=== PATIENT | male | born 1985 | race Caucasian/White ===

== ENCOUNTER 2017-08-27 14:57 | Inpatient (IN) | payer OTHER ==
[2017-08-27 15:54] LABS: Basophils % (Auto) 0.7 % (0.0-1.8); Eosinophils % (Auto) 5.1 % (0.0-4.3); Hematocrit 46.5 % (35.5-45.6); Hemoglobin 15.7 gm/dl (11.8-15.2); Mean Corpuscular HGB Conc 34 % (32-34); Mean Corpuscular Hemoglobin 31 pg (28-32); Mean Corpuscular Volume 92 fl (84-94); Platelet Count 290 K/mm3 (140-440); Red Blood Count 5.04 M/mm3 (3.65-5.03); Red Cell Distribution Width 13.4 % (13.2-15.2); White Blood Count 6.6 K/mm3 (4.5-11.0)
[2017-08-27 16:13] LABS: Alanine Aminotransferase 13 units/L (7-56); Albumin 4.4 g/dL (3.9-5); Albumin/Globulin Ratio 1.5 %; Alkaline Phosphatase 82 units/L (35-129); Anion Gap 16 mmol/L; BUN/Creatinine Ratio 10; Blood Urea Nitrogen 10 mg/dL (9-20); Calcium 8.9 mg/dL (8.4-10.2); Carbon Dioxide 28 mmol/L (22-30); Chloride 97.9 mmol/L (98-107); Glucose 103 mg/dL (75-100); Potassium 4.2 mmol/L (3.6-5.0); Sodium 138 mmol/L (137-145); Total Protein 7.3 g/dL (6.3-8.2)
[2017-08-27] MEDS ORDERED: MORPHINE IV ONE (18:23)
[2017-08-27] MEDS ORDERED: LOVENOX SUB-Q ONE (18:24)
[2017-08-27] MEDS ORDERED: MORPHINE ONE (18:48)
--- NOTE | 2017-08-27 19:12 | Emergency Department Report ---
ED General Adult HPI - General Chief complaint: Extremity Injury, Lower Stated complaint: RIGHT LEG SWOLLEN Time Seen by Provider: 08/27/17 18:23 Source: patient Mode of arrival: Ambulatory Limitations: No Limitations - History of Present Illness Initial comments: Patient is a 32-year-old male no significant past medical history who presents with right leg pain and swelling. Patient states that right leg pain has been going on for the last couple days however it's gotten a lot worse today. Sensation states that pain is severe and nothing makes it better or worse patient states that the pain is achy it's deep it radiates down his ankle. Patient denies having nausea or vomiting. He denies having any shortness of breath. Severity scale (0 -10): 9 - Related Data Home Medications Medication Instructions Recorded Confirmed Last Taken No Known Home Medications [No 08/27/17 08/27/17 Unknown Reported Home Medications] Allergies Allergy/AdvReac Type Severity Reaction Status Date / Time No Known Allergies Allergy Unverified 08/27/17 15:02 ED Review of Systems ROS: Stated complaint: RIGHT LEG SWOLLEN Other details as noted in HPI Constitutional: denies: chills, fever Eyes: denies: eye pain, eye discharge, vision change ENT: denies: ear pain, throat pain Respiratory: denies: cough, shortness of breath, wheezing Cardiovascular: denies: chest pain, palpitations Endocrine: no symptoms reported Gastrointestinal: denies: abdominal pain, nausea, diarrhea Genitourinary: denies: urgency, dysuria Musculoskeletal: as per HPI (right calf swelling ). denies: back pain, joint swelling, arthralgia Skin: denies: rash, lesions Neurological: denies: headache, weakness, paresthesias Psychiatric: denies: anxiety, depression Hematological/Lymphatic: denies: easy bleeding, easy bruising ED Past Medical Hx - Past Medical History Previous Medical History?: No - Surgical History Past Surgical History?: No - Social History Smoking Status: Never Smoker Substance Use Type: Alcohol - Medications Home Medications: Home Medications Medication Instructions Recorded Confirmed Last Taken Type No Known Home Medications [No 08/27/17 08/27/17 Unknown History Reported Home Medications] ED Physical Exam - General Limitations: No Limitations General appearance: alert, in no apparent distress - Head Head exam: Present: atraumatic, normocephalic - Eye Eye exam: Present: normal appearance - ENT ENT exam: Present: mucous membranes moist - Neck Neck exam: Present: normal inspection - Respiratory Respiratory exam: Present: normal lung sounds bilaterally. Absent: respiratory distress - Cardiovascular Cardiovascular Exam: Present: regular rate, normal rhythm. Absent: systolic murmur, diastolic murmur, rubs, gallop - GI/Abdominal GI/Abdominal exam: Present: soft, normal bowel sounds - Rectal Rectal exam: Present: deferred - Extremities Exam Extremities exam: Present: normal inspection - Back Exam Back exam: Present: normal inspection - Neurological Exam Neurological exam: Present: alert, oriented X3 - Psychiatric Psychiatric exam: Present: normal affect, normal mood - Skin Skin exam: Present: warm, dry, intact, normal color. Absent: rash ED Course Vital Signs 08/27/17 08/27/17 08/27/17 15:00 18:25 18:55 Temperature 98.0 F 98.6 F Pulse Rate 85 85 Respiratory 18 18 18 Rate Blood Pressure 114/70 Blood Pressure 101/66 [Right] O2 Sat by Pulse 99 99 Oximetry 08/27/17 23:15 Temperature Pulse Rate Respiratory 18 Rate Blood Pressure Blood Pressure [Right] O2 Sat by Pulse 99 Oximetry ED Medical Decision Making - Lab Data Result diagrams: 08/27/17 15:17 08/27/17 15:17 Labs 08/27/17 08/27/17 15:17 15:17 WBC 6.6 RBC 5.04 H Hgb 15.7 H Hct 46.5 H MCV 92 MCH 31 MCHC 34 RDW 13.4 Plt Count 290 Lymph % (Auto) 24.7 [place] % (Auto) 7.6 H Eos % (Auto) 5.1 H Baso % (Auto) 0.7 Lymph # 1.6 [place] # 0.5 Eos # 0.3 Baso # 0.0 Seg Neutrophils % 61.9 Seg Neutrophils # 4.1 Sodium 138 Potassium 4.2 Chloride 97.9 L Carbon Dioxide 28 Anion Gap 16 BUN 10 Creatinine 1.0 Estimated GFR > 60 BUN/Creatinine Ratio 10 Glucose 103 H Calcium 8.9 Total Bilirubin 0.80 AST 16 ALT 13 Alkaline Phosphatase 82 Total Protein 7.3 Albumin 4.4 Albumin/Globulin Ratio 1.5 - Radiology Data Radiology results: report reviewed, image reviewed Ultrasound of right leg is positive for DVT - Medical Decision Making Chief medical diagnosis: DVT Differential diagnosis: SVT, muscle hematoma, neuropathy A CBC, CMP, PTT, INR I will give patient IV morphine and I will give patient subcutaneous Lovenox. Due to patient having DVT and not having insurance he will need to be admitted to the hospital to be bridged to warfarin. Critical care attestation.: If time is entered above; I have spent that time in minutes in the direct care of this critically ill patient, excluding procedure time. ED Disposition Clinical Impression: DVT (deep venous thrombosis) Qualifiers: DVT location: lower extremity Affected thrombotic vein of extremity: unspecified vein of extremity Chronicity: acute Laterality: right Qualified Code (s): I82.401 - Acute embolism and thrombosis of unspecified deep veins of right lower extremity Lower extremity pain Qualifiers: Laterality: right Qualified Code(s): M79.604 - Pain in right leg Disposition: TO HOME OR SELFCARE Is pt being admited?: Yes Does the pt Need Aspirin: No Condition: Stable
--- NOTE | 2017-08-27 21:51 | History and Physical Report ---
History of Present Illness Date of examination: 08/27/17 Chief complaint: Pain on the right leg of 2 weeks History of present illness: 32-year-old male with no significant past medical history presented to emergency department for the complaints of right leg swelling and pain for the last 2 weeks. Patient said pain is sharp, involves the right leg below the knee and aggravated with movement 10 out of 10 in intensity with no radiation, erythema. Patient denied fever or chills, difficulty of breathing or trauma to his leg. 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 REVIEW OF SYSTEMS: GENERAL: no weight change, no fatigue, no fever HEAD: no head ache EYES: no blurry vision, no acute visual loss EARS: no hearing loss, no discharge, no earache NOSE: no stuffiness, no sneezing, no discharge MOUTH, THROAT AND NECK: no bleeding gums, no sore throat, no swollen neck CARDIAC: no palpitations, no dyspnea on exertion, no orthopnea, no PND, no edema , no chest pain RESPIRATORY: no shortness of breath, no wheeze, no cough, no sputum, no hemoptysis, no asthma GI: no decreased appetite, no nausea, no vomiting, no dysphagia, no diarrhea, no constipation, no abdominal pain URINARY: no change in frequency, no urgency, no polyuria, no hematuria, no incontinence MUSCULOSKELETAL: no muscle weakness, + pain right leg, no joint stiffness NEUROLOGIC: no loss of sensation/numbness, no tingling, no tremors, no weakness/ paralysis HEMATOLOGIC: no anemia, no easy bruising SKIN: no rashes ENDOCRINE: no heat/cold intolerance, no polyuria, no polydipsia, no thyroid problems, no diabetes PSYCHIATRIC: no anxiety, no depression, no suicidal ideations Past History Past Medical History: No medical history Past Surgical History: No surgical history Social history: smoking (one pack of cigarettes per week), alcohol abuse ( sixpacks per day), full code. denies: prescription drug abuse, IV drug use Family history: no significant family history Medications and Allergies Allergies Allergy/AdvReac Type Severity Reaction Status Date / Time No Known Allergies Allergy Unverified 08/27/17 15:02 Home Medications Medication Instructions Recorded Confirmed Last Taken Type No Known Home Medications [No 08/27/17 08/27/17 Unknown History Reported Home Medications] Exam - Physical Exam Narrative exam: Not in cardiopulmonary distress. The patient appeared well nourished and normally developed. Vital signs as documented. Head exam is unremarkable. No scleral icterus . Neck is without jugular venous distension, thyromegaly, or carotid bruits. Lungs are clear to auscultation. Cardiac exam reveals regular rate and Rhythm. First and second heart sounds normal. No murmurs, rubs or gallops. Abdominal exam reveals normal bowel sounds, no masses, no organomegaly and no aortic enlargement. Extremities are tender ness on the RLE below the knee, erythema. 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 No focal weakness. - Constitutional Vitals: Temp Pulse Resp BP Pulse Ox 98.6 F 85 18 101/66 99 08/27/17 18:25 08/27/17 18:25 08/27/17 18:55 08/27/17 18:25 08/27/17 18:25 Results - Labs CBC & Chem 7: 08/27/17 15:17 08/27/17 15:17 Labs: Laboratory Last Values WBC 6.6 K/mm3 (4.5-11.0) 08/27/17 15:17 RBC 5.04 M/mm3 (3.65-5.03) H 08/27/17 15:17 Hgb 15.7 gm/dl (11.8-15.2) H 08/27/17 15:17 Hct 46.5 % (35.5-45.6) H 08/27/17 15:17 MCV 92 fl (84-94) 08/27/17 15:17 MCH 31 pg (28-32) 08/27/17 15:17 MCHC 34 % (32-34) 08/27/17 15:17 RDW 13.4 % (13.2-15.2) 08/27/17 15:17 Plt Count 290 K/mm3 (140-440) 08/27/17 15:17 Lymph % (Auto) 24.7 % (13.4-35.0) 08/27/17 15:17 [place] % (Auto) 7.6 % (0.0-7.3) H 08/27/17 15:17 Eos % (Auto) 5.1 % (0.0-4.3) H 08/27/17 15:17 Baso % (Auto) 0.7 % (0.0-1.8) 08/27/17 15:17 Lymph # 1.6 K/mm3 (1.2-5.4) 08/27/17 15:17 [place] # 0.5 K/mm3 (0.0-0.8) 08/27/17 15:17 Eos # 0.3 K/mm3 (0.0-0.4) 08/27/17 15:17 Baso # 0.0 K/mm3 (0.0-0.1) 08/27/17 15:17 Seg Neutrophils % 61.9 % (40.0-70.0) 08/27/17 15:17 Seg Neutrophils # 4.1 K/mm3 (1.8-7.7) 08/27/17 15:17 Sodium 138 mmol/L (137-145) 08/27/17 15:17 Potassium 4.2 mmol/L (3.6-5.0) 08/27/17 15:17 Chloride 97.9 mmol/L (98-107) L 08/27/17 15:17 Carbon Dioxide 28 mmol/L (22-30) 08/27/17 15:17 Anion Gap 16 mmol/L 08/27/17 15:17 BUN 10 mg/dL (9-20) 08/27/17 15:17 Creatinine 1.0 mg/dL (0.8-1.5) 08/27/17 15:17 Estimated GFR > 60 ml/min 08/27/17 15:17 BUN/Creatinine Ratio 10 % 08/27/17 15:17 Glucose 103 mg/dL (75-100) H 08/27/17 15:17 Calcium 8.9 mg/dL (8.4-10.2) 08/27/17 15:17 Total Bilirubin 0.80 mg/dL (0.1-1.2) 08/27/17 15:17 AST 16 units/L (5-40) 08/27/17 15:17 ALT 13 units/L (7-56) 08/27/17 15:17 Alkaline Phosphatase 82 units/L (35-129) 08/27/17 15:17 Total Protein 7.3 g/dL (6.3-8.2) 08/27/17 15:17 Albumin 4.4 g/dL (3.9-5) 08/27/17 15:17 Albumin/Globulin Ratio 1.5 % 08/27/17 15:17 Assessment and Plan Assessment and plan: Right lower extremity DVT - EVIDENCE OF ACUTE THROMBUS NOTED IN THE RT.CFV EXTENDING TO THE RT.PX GSV - Patient started with on Lovenox and Coumadin - Pain control - Patient didn't have insurance Disposition - Admit to medical floor. Advance Directives: Yes VTE prophylaxis?: Chemical Plan of care discussed with patient/family: Yes
[2017-08-27] MEDS ORDERED: MOTRIN PO PRN (23:24)
[2017-08-28 07:50] LABS: Basophils % (Auto) 0.8 % (0.0-1.8); Eosinophils % (Auto) 6.7 % (0.0-4.3); Hematocrit 45.1 % (35.5-45.6); Hemoglobin 15.2 gm/dl (11.8-15.2); Mean Corpuscular HGB Conc 34 % (32-34); Mean Corpuscular Hemoglobin 31 pg (28-32); Mean Corpuscular Volume 92 fl (84-94); Platelet Count 276 K/mm3 (140-440); Red Blood Count 4.88 M/mm3 (3.65-5.03); Red Cell Distribution Width 13.2 % (13.2-15.2); White Blood Count 6.3 K/mm3 (4.5-11.0)
[2017-08-28 08:38] LABS: INR 0.95 (0.87-1.13)
[2017-08-28 08:55] LABS: Anion Gap 14 mmol/L; BUN/Creatinine Ratio 10; Blood Urea Nitrogen 9 mg/dL (9-20); Calcium 8.6 mg/dL (8.4-10.2); Carbon Dioxide 27 mmol/L (22-30); Chloride 103.7 mmol/L (98-107); Glucose 117 mg/dL (75-100); Potassium 3.8 mmol/L (3.6-5.0); Sodium 141 mmol/L (137-145)
[2017-08-28] MEDS: LOVENOX SUB-Q SCH ×2 (09:49→21:14)
--- NOTE | 2017-08-28 12:31 | Progress Note ---
Assessment and Plan Assessment and plan: Right lower extremity DVT - EVIDENCE OF ACUTE THROMBUS NOTED IN THE RT.CFV EXTENDING TO THE RT.PX GSV - Continue with on Lovenox and Coumadin - Pain control - Patient does not have insurance -. Case management consultation for discharge needs Disposition - Admit to medical floor. History Interval history: No new issues overnight. Hospitalist Physical - Constitutional Vitals: Temp Pulse Resp BP Pulse Ox 98.5 F 75 20 95/66 97 08/28/17 07:35 08/28/17 07:35 08/28/17 07:35 08/28/17 07:35 08/28/17 07:35 General appearance: Present: no acute distress, well-nourished - EENT Eyes: Present: PERRL, EOM intact ENT: hearing intact, clear oral mucosa, dentition normal - Neck Neck: Present: supple, normal ROM - Respiratory Respiratory effort: normal Respiratory: bilateral: CTA - Cardiovascular Rhythm: regular Heart Sounds: Present: S1 & S2. Absent: gallop, rub - Extremities Extremities: no ischemia, No edema, Full ROM - Abdominal General gastrointestinal: soft, non-tender, non-distended, normal bowel sounds - Integumentary Integumentary: Present: clear, warm, dry - Neurologic Neurologic: CNII-XII intact, moves all extremities Results - Labs CBC & Chem 7: 08/28/17 07:06 08/28/17 07:06 Labs: Laboratory Last Values WBC 6.3 K/mm3 (4.5-11.0) 08/28/17 07:06 RBC 4.88 M/mm3 (3.65-5.03) 08/28/17 07:06 Hgb 15.2 gm/dl (11.8-15.2) 08/28/17 07:06 Hct 45.1 % (35.5-45.6) 08/28/17 07:06 MCV 92 fl (84-94) 08/28/17 07:06 MCH 31 pg (28-32) 08/28/17 07:06 MCHC 34 % (32-34) 08/28/17 07:06 RDW 13.2 % (13.2-15.2) 08/28/17 07:06 Plt Count 276 K/mm3 (140-440) 08/28/17 07:06 Lymph % (Auto) 33.5 % (13.4-35.0) 08/28/17 07:06 [place] % (Auto) 8.3 % (0.0-7.3) H 08/28/17 07:06 Eos % (Auto) 6.7 % (0.0-4.3) H 08/28/17 07:06 Baso % (Auto) 0.8 % (0.0-1.8) 08/28/17 07:06 Lymph # 2.1 K/mm3 (1.2-5.4) 08/28/17 07:06 [place] # 0.5 K/mm3 (0.0-0.8) 08/28/17 07:06 Eos # 0.4 K/mm3 (0.0-0.4) 08/28/17 07:06 Baso # 0.0 K/mm3 (0.0-0.1) 08/28/17 07:06 Seg Neutrophils % 50.7 % (40.0-70.0) 08/28/17 07:06 Seg Neutrophils # 3.2 K/mm3 (1.8-7.7) 08/28/17 07:06 PT 13.2 Sec. (12.2-14.9) 08/28/17 07:06 INR 0.95 (0.87-1.13) 08/28/17 07:06 Sodium 138 mmol/L (137-145) 08/27/17 15:17 Potassium 4.2 mmol/L (3.6-5.0) 08/27/17 15:17 Chloride 97.9 mmol/L (98-107) L 08/27/17 15:17 Carbon Dioxide 27 mmol/L (22-30) 08/28/17 07:06 Anion Gap 16 mmol/L 08/27/17 15:17 BUN 9 mg/dL (9-20) 08/28/17 07:06 Creatinine 0.9 mg/dL (0.8-1.5) 08/28/17 07:06 Estimated GFR > 60 ml/min 08/28/17 07:06 BUN/Creatinine Ratio 10 % 08/28/17 07:06 Glucose 117 mg/dL (75-100) H 08/28/17 07:06 Calcium 8.6 mg/dL (8.4-10.2) 08/28/17 07:06 Total Bilirubin 0.80 mg/dL (0.1-1.2) 08/27/17 15:17 AST 16 units/L (5-40) 08/27/17 15:17 ALT 13 units/L (7-56) 08/27/17 15:17 Alkaline Phosphatase 82 units/L (35-129) 08/27/17 15:17 Total Protein 7.3 g/dL (6.3-8.2) 08/27/17 15:17 Albumin 4.4 g/dL (3.9-5) 08/27/17 15:17 Albumin/Globulin Ratio 1.5 % 08/27/17 15:17
[2017-08-28] MEDS: COUMADIN PO SCH (17:40)
[2017-08-29 06:34] LABS: Basophils % (Auto) 0.8 % (0.0-1.8); Eosinophils % (Auto) 7.5 % (0.0-4.3); Hematocrit 44.8 % (35.5-45.6); Hemoglobin 15.6 gm/dl (11.8-15.2); Mean Corpuscular HGB Conc 35 % (32-34); Mean Corpuscular Hemoglobin 32 pg (28-32); Mean Corpuscular Volume 91 fl (84-94); Platelet Count 254 K/mm3 (140-440); Red Blood Count 4.92 M/mm3 (3.65-5.03); Red Cell Distribution Width 13.4 % (13.2-15.2); White Blood Count 5.8 K/mm3 (4.5-11.0)
[2017-08-29 06:41] LABS: INR 0.97 (0.87-1.13)
[2017-08-29 06:52] LABS: Anion Gap 17 mmol/L; BUN/Creatinine Ratio 13; Blood Urea Nitrogen 12 mg/dL (9-20); Calcium 8.7 mg/dL (8.4-10.2); Carbon Dioxide 26 mmol/L (22-30); Chloride 100.3 mmol/L (98-107); Glucose 95 mg/dL (75-100); Potassium 3.9 mmol/L (3.6-5.0); Sodium 139 mmol/L (137-145)
--- NOTE | 2017-08-29 10:53 | Progress Note ---
Assessment and Plan Assessment and plan: Right lower extremity DVT - EVIDENCE OF ACUTE THROMBUS NOTED IN THE RT.CFV EXTENDING TO THE RT.PX GSV - Continue with on Lovenox and Coumadin - Pain control - Patient does not have insurance - Case management consultation for discharge needs Disposition - Continue inpatient management until INR therapeutic 2-3 History Interval history: No new issues overnight. Hospitalist Physical - Constitutional Vitals: Temp Pulse Resp BP Pulse Ox 99.6 F 86 20 107/69 100 08/29/17 07:51 08/29/17 07:51 08/29/17 07:51 08/29/17 07:51 08/29/17 07:51 General appearance: Present: no acute distress, well-nourished - EENT Eyes: Present: PERRL, EOM intact ENT: hearing intact, clear oral mucosa, dentition normal - Neck Neck: Present: supple, normal ROM - Respiratory Respiratory effort: normal Respiratory: bilateral: CTA - Cardiovascular Rhythm: regular Heart Sounds: Present: S1 & S2. Absent: gallop, rub - Extremities Extremities: no ischemia, No edema, Full ROM - Abdominal General gastrointestinal: soft, non-tender, non-distended, normal bowel sounds - Integumentary Integumentary: Present: clear, warm, dry - Neurologic Neurologic: CNII-XII intact, moves all extremities Results - Labs CBC & Chem 7: 08/29/17 05:45 08/29/17 05:45 Labs: Laboratory Last Values WBC 5.8 K/mm3 (4.5-11.0) 08/29/17 05:45 RBC 4.92 M/mm3 (3.65-5.03) 08/29/17 05:45 Hgb 15.6 gm/dl (11.8-15.2) H 08/29/17 05:45 Hct 44.8 % (35.5-45.6) 08/29/17 05:45 MCV 91 fl (84-94) 08/29/17 05:45 MCH 32 pg (28-32) 08/29/17 05:45 MCHC 35 % (32-34) H 08/29/17 05:45 RDW 13.4 % (13.2-15.2) 08/29/17 05:45 Plt Count 254 K/mm3 (140-440) 08/29/17 05:45 Lymph % (Auto) 34.4 % (13.4-35.0) 08/29/17 05:45 [place] % (Auto) 8.5 % (0.0-7.3) H 08/29/17 05:45 Eos % (Auto) 7.5 % (0.0-4.3) H 08/29/17 05:45 Baso % (Auto) 0.8 % (0.0-1.8) 08/29/17 05:45 Lymph # 2.0 K/mm3 (1.2-5.4) 08/29/17 05:45 [place] # 0.5 K/mm3 (0.0-0.8) 08/29/17 05:45 Eos # 0.4 K/mm3 (0.0-0.4) 08/29/17 05:45 Baso # 0.0 K/mm3 (0.0-0.1) 08/29/17 05:45 Seg Neutrophils % 48.8 % (40.0-70.0) 08/29/17 05:45 Seg Neutrophils # 2.8 K/mm3 (1.8-7.7) 08/29/17 05:45 PT 13.4 Sec. (12.2-14.9) 08/29/17 05:45 INR 0.97 (0.87-1.13) 08/29/17 05:45 Sodium 139 mmol/L (137-145) 08/29/17 05:45 Potassium 3.9 mmol/L (3.6-5.0) 08/29/17 05:45 Chloride 100.3 mmol/L (98-107) 08/29/17 05:45 Carbon Dioxide 26 mmol/L (22-30) 08/29/17 05:45 Anion Gap 17 mmol/L 08/29/17 05:45 BUN 12 mg/dL (9-20) 08/29/17 05:45 Creatinine 0.9 mg/dL (0.8-1.5) 08/29/17 05:45 Estimated GFR > 60 ml/min 08/29/17 05:45 BUN/Creatinine Ratio 13 % 08/29/17 05:45 Glucose 95 mg/dL (75-100) 08/29/17 05:45 Calcium 8.7 mg/dL (8.4-10.2) 08/29/17 05:45 Total Bilirubin 0.80 mg/dL (0.1-1.2) 08/27/17 15:17 AST 16 units/L (5-40) 08/27/17 15:17 ALT 13 units/L (7-56) 08/27/17 15:17 Alkaline Phosphatase 82 units/L (35-129) 08/27/17 15:17 Total Protein 7.3 g/dL (6.3-8.2) 08/27/17 15:17 Albumin 4.4 g/dL (3.9-5) 08/27/17 15:17 Albumin/Globulin Ratio 1.5 % 08/27/17 15:17
[2017-08-29] MEDS: LOVENOX SUB-Q SCH ×2 (11:00→22:30)
[2017-08-29] MEDS: COUMADIN PO SCH (17:27)
--- NOTE | 2017-08-30 09:21 | Progress Note ---
Assessment and Plan Assessment and plan: Right lower extremity DVT - EVIDENCE OF ACUTE THROMBUS NOTED IN THE RT.CFV EXTENDING TO THE RT.PX GSV - Continue with on Lovenox and Coumadin - Pain control - Patient does not have insurance - Case management consultation for discharge needs Disposition - Continue inpatient management until INR therapeutic 2-3 History Interval history: No new issues overnight. Hospitalist Physical - Constitutional Vitals: Temp Pulse Resp BP Pulse Ox 97.7 F 73 16 100/50 98 08/30/17 08:00 08/30/17 08:00 08/29/17 23:34 08/30/17 08:00 08/30/17 08:00 General appearance: Present: no acute distress, well-nourished - EENT Eyes: Present: PERRL, EOM intact ENT: hearing intact, clear oral mucosa, dentition normal - Neck Neck: Present: supple, normal ROM - Respiratory Respiratory effort: normal Respiratory: bilateral: CTA - Cardiovascular Rhythm: regular Heart Sounds: Present: S1 & S2. Absent: gallop, rub - Extremities Extremities: no ischemia, No edema, Full ROM - Abdominal General gastrointestinal: soft, non-tender, non-distended, normal bowel sounds - Integumentary Integumentary: Present: clear, warm, dry - Neurologic Neurologic: CNII-XII intact, moves all extremities Results - Labs CBC & Chem 7: 08/29/17 05:45 08/29/17 05:45 Labs: Laboratory Last Values WBC 5.8 K/mm3 (4.5-11.0) 08/29/17 05:45 RBC 4.92 M/mm3 (3.65-5.03) 08/29/17 05:45 Hgb 15.6 gm/dl (11.8-15.2) H 08/29/17 05:45 Hct 44.8 % (35.5-45.6) 08/29/17 05:45 MCV 91 fl (84-94) 08/29/17 05:45 MCH 32 pg (28-32) 08/29/17 05:45 MCHC 35 % (32-34) H 08/29/17 05:45 RDW 13.4 % (13.2-15.2) 08/29/17 05:45 Plt Count 254 K/mm3 (140-440) 08/29/17 05:45 Lymph % (Auto) 34.4 % (13.4-35.0) 08/29/17 05:45 [place] % (Auto) 8.5 % (0.0-7.3) H 08/29/17 05:45 Eos % (Auto) 7.5 % (0.0-4.3) H 08/29/17 05:45 Baso % (Auto) 0.8 % (0.0-1.8) 08/29/17 05:45 Lymph # 2.0 K/mm3 (1.2-5.4) 08/29/17 05:45 [place] # 0.5 K/mm3 (0.0-0.8) 08/29/17 05:45 Eos # 0.4 K/mm3 (0.0-0.4) 08/29/17 05:45 Baso # 0.0 K/mm3 (0.0-0.1) 08/29/17 05:45 Seg Neutrophils % 48.8 % (40.0-70.0) 08/29/17 05:45 Seg Neutrophils # 2.8 K/mm3 (1.8-7.7) 08/29/17 05:45 PT 13.4 Sec. (12.2-14.9) 08/29/17 05:45 INR 0.97 (0.87-1.13) 08/29/17 05:45 Sodium 139 mmol/L (137-145) 08/29/17 05:45 Potassium 3.9 mmol/L (3.6-5.0) 08/29/17 05:45 Chloride 100.3 mmol/L (98-107) 08/29/17 05:45 Carbon Dioxide 26 mmol/L (22-30) 08/29/17 05:45 Anion Gap 17 mmol/L 08/29/17 05:45 BUN 12 mg/dL (9-20) 08/29/17 05:45 Creatinine 0.9 mg/dL (0.8-1.5) 08/29/17 05:45 Estimated GFR > 60 ml/min 08/29/17 05:45 BUN/Creatinine Ratio 13 % 08/29/17 05:45 Glucose 95 mg/dL (75-100) 08/29/17 05:45 Calcium 8.7 mg/dL (8.4-10.2) 08/29/17 05:45 Total Bilirubin 0.80 mg/dL (0.1-1.2) 08/27/17 15:17 AST 16 units/L (5-40) 08/27/17 15:17 ALT 13 units/L (7-56) 08/27/17 15:17 Alkaline Phosphatase 82 units/L (35-129) 08/27/17 15:17 Total Protein 7.3 g/dL (6.3-8.2) 08/27/17 15:17 Albumin 4.4 g/dL (3.9-5) 08/27/17 15:17 Albumin/Globulin Ratio 1.5 % 08/27/17 15:17
[2017-08-30] MEDS: LOVENOX SUB-Q SCH ×2 (11:00→22:00)
[2017-08-30 11:26] LABS: INR 1.07 (0.87-1.13)
[2017-08-30] MEDS: COUMADIN PO SCH (17:45)
[2017-08-31 09:19] LABS: Basophils % (Auto) 0.6 % (0.0-1.8); Eosinophils % (Auto) 5.9 % (0.0-4.3); Hematocrit 52.5 % (35.5-45.6); Hemoglobin 17.7 gm/dl (11.8-15.2); Mean Corpuscular HGB Conc 34 % (32-34); Mean Corpuscular Hemoglobin 31 pg (28-32); Mean Corpuscular Volume 92 fl (84-94); Platelet Count 317 K/mm3 (140-440); Red Blood Count 5.72 M/mm3 (3.65-5.03); Red Cell Distribution Width 13.5 % (13.2-15.2); White Blood Count 6.4 K/mm3 (4.5-11.0)
[2017-08-31] MEDS: LOVENOX SUB-Q SCH ×2 (09:30→21:59)
[2017-08-31 09:32] LABS: INR 1.26 (0.87-1.13)
[2017-08-31 09:42] LABS: Anion Gap 17 mmol/L; BUN/Creatinine Ratio 14; Blood Urea Nitrogen 13 mg/dL (9-20); Calcium 9.2 mg/dL (8.4-10.2); Carbon Dioxide 29 mmol/L (22-30); Glucose 107 mg/dL (75-100); Potassium 4.2 mmol/L (3.6-5.0); Sodium 140 mmol/L (137-145)
--- NOTE | 2017-08-31 09:44 | Progress Note ---
Assessment and Plan Assessment and plan: Right lower extremity DVT - EVIDENCE OF ACUTE THROMBUS NOTED IN THE RT.CFV EXTENDING TO THE RT.PX GSV - Continue with on Lovenox and Coumadin - Pain control - Patient does not have insurance - Case management consultation for discharge needs -INR 1.26 Disposition - Continue inpatient management until INR therapeutic 2-3 History Interval history: No new issues overnight. Hospitalist Physical - Constitutional Vitals: Temp Pulse Resp BP Pulse Ox 97.9 F 83 16 109/79 97 08/31/17 08:00 08/31/17 08:00 08/31/17 08:00 08/31/17 08:00 08/31/17 08:00 General appearance: Present: no acute distress, well-nourished - EENT Eyes: Present: PERRL, EOM intact ENT: hearing intact, clear oral mucosa, dentition normal - Neck Neck: Present: supple, normal ROM - Respiratory Respiratory effort: normal Respiratory: bilateral: CTA - Cardiovascular Rhythm: regular Heart Sounds: Present: S1 & S2. Absent: gallop, rub - Extremities Extremities: no ischemia, No edema, Full ROM - Abdominal General gastrointestinal: soft, non-tender, non-distended, normal bowel sounds - Integumentary Integumentary: Present: clear, warm, dry - Neurologic Neurologic: CNII-XII intact, moves all extremities Results - Labs CBC & Chem 7: 08/31/17 08:54 08/31/17 08:54 Labs: Laboratory Last Values WBC 6.4 K/mm3 (4.5-11.0) 08/31/17 08:54 RBC 5.72 M/mm3 (3.65-5.03) H 08/31/17 08:54 Hgb 17.7 gm/dl (11.8-15.2) H 08/31/17 08:54 Hct 52.5 % (35.5-45.6) H D 08/31/17 08:54 MCV 92 fl (84-94) 08/31/17 08:54 MCH 31 pg (28-32) 08/31/17 08:54 MCHC 34 % (32-34) 08/31/17 08:54 RDW 13.5 % (13.2-15.2) 08/31/17 08:54 Plt Count 317 K/mm3 (140-440) 08/31/17 08:54 Lymph % (Auto) 22.6 % (13.4-35.0) 08/31/17 08:54 [place] % (Auto) 7.3 % (0.0-7.3) 08/31/17 08:54 Eos % (Auto) 5.9 % (0.0-4.3) H 08/31/17 08:54 Baso % (Auto) 0.6 % (0.0-1.8) 08/31/17 08:54 Lymph # 1.5 K/mm3 (1.2-5.4) 08/31/17 08:54 [place] # 0.5 K/mm3 (0.0-0.8) 08/31/17 08:54 Eos # 0.4 K/mm3 (0.0-0.4) 08/31/17 08:54 Baso # 0.0 K/mm3 (0.0-0.1) 08/31/17 08:54 Seg Neutrophils % 63.6 % (40.0-70.0) 08/31/17 08:54 Seg Neutrophils # 4.1 K/mm3 (1.8-7.7) 08/31/17 08:54 PT 16.4 Sec. (12.2-14.9) H 08/31/17 08:54 INR 1.26 (0.87-1.13) H 08/31/17 08:54 Sodium 140 mmol/L (137-145) 08/31/17 08:54 Potassium 4.2 mmol/L (3.6-5.0) 08/31/17 08:54 Chloride 98.0 mmol/L (98-107) 08/31/17 08:54 Carbon Dioxide 29 mmol/L (22-30) 08/31/17 08:54 Anion Gap 17 mmol/L 08/31/17 08:54 BUN 13 mg/dL (9-20) 08/31/17 08:54 Creatinine 0.9 mg/dL (0.8-1.5) 08/31/17 08:54 Estimated GFR > 60 ml/min 08/31/17 08:54 BUN/Creatinine Ratio 14 % 08/31/17 08:54 Glucose 107 mg/dL (75-100) H 08/31/17 08:54 Calcium 9.2 mg/dL (8.4-10.2) 08/31/17 08:54 Total Bilirubin 0.80 mg/dL (0.1-1.2) 08/27/17 15:17 AST 16 units/L (5-40) 08/27/17 15:17 ALT 13 units/L (7-56) 08/27/17 15:17 Alkaline Phosphatase 82 units/L (35-129) 08/27/17 15:17 Total Protein 7.3 g/dL (6.3-8.2) 08/27/17 15:17 Albumin 4.4 g/dL (3.9-5) 08/27/17 15:17 Albumin/Globulin Ratio 1.5 % 08/27/17 15:17
--- NOTE | 2017-08-31 15:53 | Vascular Lab Report ---
Right Lower Extremity Venous Duplex Study: Reason for Exam: Pain and swelling of the right lower extremity. Comments on the Right: Acute thrombus is noted in the greater saphenous vein extending into common femoral vein. The remaining veins visualized are freely compressible without evidence of internal echogenicity. Spontaneous and phasic flow is present proximally. Comments on the Left: A limited duplex study was done of the proximal veins of the left lower extremity. All veins visualized are freely compressible without evidence of internal echogenicity. Flow is spontaneous and phasic throughout. No evidence of acute or chronic thrombus is seen in any of the vessels visualized. Impression: Acute deep and superficial thrombosis in the right lower extremity.
[2017-08-31] MEDS: COUMADIN PO SCH (16:59)
[2017-09-01] MEDS: LOVENOX SUB-Q SCH ×2 (10:02→21:28)
[2017-09-01 10:51] LABS: INR 1.88 (0.87-1.13)
[2017-09-01] MEDS ORDERED: TYLENOL PO PRN (14:22)
--- NOTE | 2017-09-01 14:22 | Progress Note ---
Assessment and Plan Assessment and plan: Patient is a 32-year-old man with a history of tobacco and alcohol dependency who presents with right leg swelling. Patient admits to long distance traveling in car >1 hour. 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 Follow-up on current diagnosis/right leg swelling and pain which is improved. Overnight uneventful. Patient denies any chest pain, shortness breath, nausea/vomiting or severe headaches. Imaging, nursing note, chart, labs and old chart reviewed. Discussed with patient. Hospitalist Physical - Physical exam Narrative exam: GEN: WDWN, NAD, AWAKE, ALERT, ORIENTATED x 3 HEENT: NCAT, EOMI, PERRL, OP Clear NECK: supple, no adenopathy, no thyromegaly, no JVD CVS/HEART: RRR, NORMAL S1S2, NO JVD, pulses present bilaterally CHEST/LUNGS: CTA B, Symmetrical chest expansion, good air entry bilaterally GI/Abdomen: soft, NTND, good bowel sounds, no guarding or rebound /Bladder: no suprapubic tenderness, no CVA or paraspinal tenderness EXT/Skin: no c/c/e, no obvious rash, right leg slightly bigger than left, the redness up to his inner thigh resolved but you can still see discoloration where redness was located MSK: FROM x 4 Neuro: CN 2-12 grossly intact, no new focal deficits Psych: calm - Constitutional Vitals: Temp Pulse Resp BP Pulse Ox 97.8 F 74 20 107/70 100 09/01/17 07:57 08/31/17 21:18 09/01/17 07:57 09/01/17 07:57 08/31/17 21:18 General appearance: Present: no acute distress, well-nourished Results - Labs CBC & Chem 7: 08/31/17 08:54 08/31/17 08:54 Labs: Laboratory Last Values WBC 6.4 K/mm3 (4.5-11.0) 08/31/17 08:54 RBC 5.72 M/mm3 (3.65-5.03) H 08/31/17 08:54 Hgb 17.7 gm/dl (11.8-15.2) H 08/31/17 08:54 Hct 52.5 % (35.5-45.6) H D 08/31/17 08:54 MCV 92 fl (84-94) 08/31/17 08:54 MCH 31 pg (28-32) 08/31/17 08:54 MCHC 34 % (32-34) 08/31/17 08:54 RDW 13.5 % (13.2-15.2) 08/31/17 08:54 Plt Count 317 K/mm3 (140-440) 08/31/17 08:54 Lymph % (Auto) 22.6 % (13.4-35.0) 08/31/17 08:54 [place] % (Auto) 7.3 % (0.0-7.3) 08/31/17 08:54 Eos % (Auto) 5.9 % (0.0-4.3) H 08/31/17 08:54 Baso % (Auto) 0.6 % (0.0-1.8) 08/31/17 08:54 Lymph # 1.5 K/mm3 (1.2-5.4) 08/31/17 08:54 [place] # 0.5 K/mm3 (0.0-0.8) 08/31/17 08:54 Eos # 0.4 K/mm3 (0.0-0.4) 08/31/17 08:54 Baso # 0.0 K/mm3 (0.0-0.1) 08/31/17 08:54 Seg Neutrophils % 63.6 % (40.0-70.0) 08/31/17 08:54 Seg Neutrophils # 4.1 K/mm3 (1.8-7.7) 08/31/17 08:54 PT 22.5 Sec. (12.2-14.9) H 09/01/17 09:55 INR 1.88 (0.87-1.13) H 09/01/17 09:55 Sodium 140 mmol/L (137-145) 08/31/17 08:54 Potassium 4.2 mmol/L (3.6-5.0) 08/31/17 08:54 Chloride 98.0 mmol/L (98-107) 08/31/17 08:54 Carbon Dioxide 29 mmol/L (22-30) 08/31/17 08:54 Anion Gap 17 mmol/L 08/31/17 08:54 BUN 13 mg/dL (9-20) 08/31/17 08:54 Creatinine 0.9 mg/dL (0.8-1.5) 08/31/17 08:54 Estimated GFR > 60 ml/min 08/31/17 08:54 BUN/Creatinine Ratio 14 % 08/31/17 08:54 Glucose 107 mg/dL (75-100) H 08/31/17 08:54 Calcium 9.2 mg/dL (8.4-10.2) 08/31/17 08:54 Total Bilirubin 0.80 mg/dL (0.1-1.2) 08/27/17 15:17 AST 16 units/L (5-40) 08/27/17 15:17 ALT 13 units/L (7-56) 08/27/17 15:17 Alkaline Phosphatase 82 units/L (35-129) 08/27/17 15:17 Total Protein 7.3 g/dL (6.3-8.2) 08/27/17 15:17 Albumin 4.4 g/dL (3.9-5) 08/27/17 15:17 Albumin/Globulin Ratio 1.5 % 08/27/17 15:17
[2017-09-01] MEDS: COUMADIN PO SCH (18:23)
[2017-09-01] MEDS: PEPCID PO SCH (21:28)
[2017-09-02] MEDS: PEPCID PO SCH (09:51)
[2017-09-02] MEDS: LOVENOX SUB-Q SCH (09:51)
--- NOTE | 2017-09-02 16:25 | Discharge Summary ---
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 Hospitalization Condition: Stable Hospital course: See Dictation in reports Disposition: DC-01 TO HOME OR SELFCARE Time spent for discharge: 25 mins Core Measure Documentation - Palliative Care Palliative Care/ Comfort Measures: Not Applicable - Core Measures Any of the following diagnoses?: none Exam - Constitutional Vitals: Temp Pulse Resp BP Pulse Ox 97.8 F 78 20 106/64 99 09/02/17 09:08 09/02/17 09:08 09/02/17 09:08 09/02/17 09:08 09/02/17 09:08 General appearance: Present: no acute distress, well-nourished - EENT Eyes: Present: PERRL ENT: hearing intact, clear oral mucosa - Neck Neck: Present: supple, normal ROM - Respiratory Respiratory effort: normal Respiratory: bilateral: CTA - Cardiovascular Heart Sounds: Present: S1 & S2. Absent: rub, click - Extremities Extremities: pulses symmetrical, No edema Peripheral Pulses: within normal limits - Abdominal General gastrointestinal: Present: soft, non-tender, non-distended, normal bowel sounds Male genitourinary: Present: normal - Integumentary Integumentary: Present: clear, warm, dry - Musculoskeletal Musculoskeletal: gait normal, strength equal bilaterally - Psychiatric Psychiatric: appropriate mood/affect, intact judgment & insight - Neurologic Neurologic: CNII-XII intact, moves all extremities Plan Activity: no restrictions Diet: regular Follow up with: PAMELA ROJAS MD [Primary Care Provider] - 3-5 Days DAVION ZHU MD [Staff Physician] - 7 Days Forms: Warfarin Discharge Instruction
[2017-09-02 16:47] VITALS: BP 120/75
[2017-09-02] MEDS: COUMADIN PO SCH (17:11)
== END 2017-09-02 17:50 | disposition home or self-care (01) | DRG 301 ==
LOC: ED 14:57 → 3A 23:22
PROVIDERS: ADMIT Internal Medicine; ATTEND Internal Medicine
DX: I82.401 Acute embolism and thrombosis of unspecified deep veins of right lower extremity (principal); F17.210 Nicotine dependence, cigarettes, uncomplicated
CPT/HCPCS: 36415; 80048; 80053; 85025; 85610; 96372; J1650; J2270